=== PATIENT | female | born 2000 | race Caucasian/White ===

== ENCOUNTER 2021-04-15 14:38 | Emergency (ER) | payer OTHER, SELFPAY ==
--- NOTE | ~2021-04-15 | CT_ITS ---
EXAMINATION: CT abdomen pelvis w con EXAM DATE: 04/15/2021 20:56 INDICATION: abd pain . Emesis for 9 days. TECHNIQUE: Spiral CT of the abdomen and pelvis was performed following intravenous injection of 100 m L Omnipaque 350. Axial, coronal and sagittal images of the abdomen and pelvis were reviewed. The do se-length product (DLP) for this examination was 1612.98 mGy-cm. The exposure was tailored according to patient size (auto mA exposure control), and iterative reconstruction (ASIR) was used as addition al dose reduction technique. There is no prior study for comparison. FINDINGS: Focal decreased attenuation along the falciform ligament likely focal hepatic steatosis. G allbladder is unremarkable. No biliary obstruction. Portal and splenic veins are patent. Kidneys e nhance symmetrically. There is no hydronephrosis. The uterus is unremarkable. The bladder is unr emarkable. There is no retroperitoneal or pelvic lymphadenopathy. No abdominal wall hernias. There are no findings to suggest appendicitis. The stomach and small bowel are unremarkable. There is expected amount of colonic stool. No free intraperitoneal gas. The heart is normal in size. T here are no pericardial or pleural effusions. The lung bases are unremarkable. There are no osteobl astic or osteolytic lesions identified. IMPRESSION: 1. No acute intra-abdominal findings. Reviewed, dictated and finalized at location A. OR [employer]
[2021-04-15 14:50] VITALS: BP 168/103; PULSE 70; RESP 18; TEMP 36; O2SAT 100
--- NOTE | 2021-04-15 14:54 | ECG_ITS ---
Measurements Intervals [place] Rate: 55 P: 4 WI: 120 QRS: 16 QRSD: 103 T: 17 QT: 442 QTc: 425 Interpretive Statements SINUS BRADYCARDIA BORDERLINE ST-T WAVE ABNORMALITY- ANT/INF LEADS BASELINE ARTIFACT- I, III, AVR, AVL, AVF, V2-V4 BORDERLINE ECG Electronically Signed On 04-15-2021 20:16:11 [employer] by Luis Enrique Pike D.O.
--- NOTE | 2021-04-15 16:10 | ED.NAVMDI ---
HPI - Nausea/Vomiting/Diarrhea General Chief complaint: Nausea/Vomiting/Diarrhea Stated complaint: vomiting x 9 days Time Seen by Provider: 04/15/21 16:04 Source: RN notes reviewed History of Present Illness HPI Narrative: Patient presents to emergency department from home for nausea vomiting. P states she has been having nausea vomiting for the past 9 days states she is vomiting approximately 4-6 times a day. She states that she has abdominal pain described as cramping with the vomiting but then resolves after that she denies any diarrhea she denies any fevers or chills chest pain shortness of breath or any other symptoms she states she presented to ED today because she felt she was dehydrated states she could feel her heart racing at times and has been having a dry mouth. She states that she has been having issues with nausea vomiting since August and has been worked up by GI specialist she has Zofran at home but she is currently out Related Data Allergies Allergy/AdvReac Type Severity Reaction Status Date / Time No Known Allergies Allergy Mild Unverified 10/18/03 08:54 Review of Systems Review of Systems: Gen.: Denies fevers or chills ENT: Denies congestion Respiratory: Denies shortness of breath or cough CV: Denies chest pain or palpitations GI: See HPI Musculoskeletal: Denies back pain or muscle pain Neuro: Denies numbness, tingling, weakness or focal weakness Skin: Denies rash Except as documented, all other systems reviewed and negative [facility] Past Medical History Medical History (Updated 04/15/21 @ 21:38 by Mustapha Dc DO) Patient denies significant medical history Social History Social History (Updated 04/15/21 @ 16:11 by Mustapha Dc DO) Smoking status: Never smoker Exam Narrative: APPEARANCE: No acute distress, nontoxic, resting in bed EYES: EOMI HEENT: Normocephalic, atraumatic RESPIRATORY: No respiratory distress Clear to auscultation bilaterally with no rhonchi wheezing or rales. CARDIOVASCULAR: Regular rate and rhythm without murmurs rubs or gallops. ABDOMINAL: Soft, nontender, nondistended, no rebound or guarding MUSCULOSKELETAl: Moves all extremities. No clubbing, cyanosis or edema. NEURO: Awake and alert. Following commands, speech normal, no focal deficits SKIN:: Warm, dry. No rashes lesions or abrasions PSYCHIATRIC: Normal affect/mood, Course Course Emergency Course: Patient states she is feeling better this time able to eat and drink in ED. States she would like referral for new GI specialist Patient states that they are feeling much better at this time. States abdominal pain has improved. Repeat abdominal exam shows the patient's abdomen to be soft with no surgical abdomen present. Discussed with patient results of workup and diagnosis. Discussed need for follow-up with primary care physician, reasons to return to the emergency department in proper use of medication. Patient understands and agrees to current treatment plan Vital Signs Vital signs: Vital Signs Temperature 96.8 F L 04/15/21 14:50 Pulse Rate 70 04/15/21 14:50 Respiratory Rate 18 04/15/21 14:50 Blood Pressure 168/103 H 04/15/21 14:50 Pulse Oximetry 100 04/15/21 14:50 Temperature 96.8 F L 04/15/21 14:50 Pulse Rate 70 04/15/21 14:50 Respiratory Rate 18 04/15/21 14:50 Blood Pressure 168/103 H 04/15/21 14:50 Pulse Oximetry 100 04/15/21 14:50 MDM - Nausea/Vomiting/Diarrhea MDM Narrative Medical decision making narrative: Patient's abdomen is soft without significant pain or signs of surgical abdomen on serial exams. Lab and x-ray evaluations are reviewed and patient is felt to be a reasonable candidate for outpatient management. Patient was instructed as to limitations of x-ray and laboratory evaluation and encouraged to return to ED or primary physician for repeat exam in 12 hours if continued or worsening pain Lab Data Result diagrams: 04/15/21 16:39 04/15/21 16:39
[2021-04-15 17:04] LABS: Basophils Percent Auto 0.2 % (0.2-1.2); Eosinophils Percent Auto 0.1 % (0-4.4); Hematocrit 45.4 % (37.0-47.0); Hemoglobin 15.6 g/dL (12.0-15.0); Immature Granulocyte Absolute 0.05 K/mm3 (0.00-0.031); Immature Granulocyte Percent A 0.4 % (0-0.5); Lymphocytes Absolute Auto 1.92 K/mm3 (0.9-3.2); Lymphocytes Percent Auto 14.4 % (18.3-44.2); Mean Corpuscular HGB Conc 34.4 g/dl (32-36); Mean Corpuscular Hemoglobin 28.4 pg (26-34); Mean Corpuscular Volume 82.7 fl (80-100); Mean Platelet Volume 10.5 fl (7.4-10.4); Monocytes Absolute Auto 0.6 K/mm3 (0.1-0.6); Monocytes Percent Auto 4.7 % (2.6-8.5); Neutrophils Absolute Auto 10.7 K/mm3 (1.3-6.7); Neutrophils Percent Auto 80.2 % (45.5-73.1); Platelet Count Result 323 k/mm3 (150-375); Red Blood Count 5.49 M/mm3 (4.2-5.4); Red Cell Distribution Width 12.9 % (11.5-14.5); White Blood Count 13.3 K/mm3 (4.5-10.0)
[2021-04-15 17:14] LABS: Alanine Aminotransferase 70 U/L (4-35); Alkaline Phosphatase 93 U/L (38-126); Anion Gap 12 mmol/L (8-16); Aspartate Amino Transferase 37 U/L (14-36); Bilirubin,Total 0.8 mg/dL (0.2-1.3); Blood Urea Nitrogen 13 mg/dL (7-17); Calcium 9.8 mg/dL (8.4-10.2); Carbon Dioxide 31 mmol/L (22-30); Chloride 93 mmol/L (98-107); Estimated CRCL calculation 140 ml/min; Estimated Glomerular Filt Rate > 60; Glucose 99 mg/dL (65-110); Lipase 48 U/L (23-300); Sodium 136 mmol/L (137-145)
[2021-04-15] MEDS: SODIUM CHLORIDE 0.9% IV 1,000 ML 999 ML IV CONT ×2 (17:15→18:27)
[2021-04-15] MEDS: ONDANSETRON INJ 4 MG/2 ML VIAL IV PUSH (17:15)
[2021-04-15 17:29] LABS: Add Urine Microscopic? YES; Appearance Urine Cloudy (Clear); Bacteria Urine Trace /hpf; Bilirubin Urine Negative (Negative); Blood Urine Negative (Negative); Color Urine Amber (Yellow); Glucose Urine UA Negative (Negative); Ketones Urine Trace mg/dL (Negative); Leukocyte Esterase Ur 3+ LEU/UL (Negative); Mucus Urine Heavy /lpf; Nitrate Urine Negative (Negative); Protein Urine 2+ mg/dL (Negative); Specific Grav Ur 1.031 (1.001-1.035); Squamous Epithelial Cell Urine Many /hpf (Few); WBC Urine >75 /hpf
[2021-04-15 19:08] LABS: Magnesium 2.1 mg/dL (1.6-2.3)
[2021-04-15] MEDS: POTASSIUM CHLORIDE 20 MEQ TABLET 40 MEQ PO (21:35)
[2021-04-15 22:10] VITALS: BP 154/96; PULSE 68; RESP 17; O2SAT 99
== END 2021-04-15 22:15 | disposition home or self-care (01) ==
PROVIDERS: Emergency Medicine; Emergency Provider Emergency Medicine; PCP Family Medicine
DX: N39.0 Urinary tract infection, site not specified (principal); R11.2 Nausea with vomiting, unspecified; R00.1 Bradycardia, unspecified; R94.31 Abnormal electrocardiogram [ECG] [EKG]
CPT/HCPCS: 36415; 74177; 80053; 81001; 81025; 83690; 83735; 85025; 87077; 87086; 87088; 87186; 93005; 96361; 96365; 96375; 99284; A9270; J0696; J2405; J7030; Q9967